=== PATIENT | female | born 1955 | race Caucasian/White ===

== ENCOUNTER 2021-01-13 14:48 | Emergency (ER) | payer OTHER, MEDICARE ==
[~2021-01-13] VITALS: Ht 160 cm; Wt 77.1 kg
[2021-01-13 14:52] VITALS: BP_SYST 140
--- NOTE | 2021-01-13 14:52 | NUR ---
Patient to ER bed 5 to gown for evaluation. Side rails up. Report given to ASHOK FARIAS.
--- NOTE | 2021-01-13 15:07 | NUR ---
Pt. came in with c/o pain to left foot 07/12, this am at 0900 pt. rolled foot, bruising noted and mild swelling
[2021-01-13] MEDS ORDERED: KETOROLAC TROMETHAMINE 15 MG VIAL IM ONE (15:15)
--- NOTE | 2021-01-13 15:16 | NUR ---
ER at bedside examining patient.
--- NOTE | 2021-01-13 16:25 | NUR ---
walking cast given, assisted with placing on
[2021-01-13] MEDS ORDERED: ACET325T53 PO (16:43)
[2021-01-13 16:59] VITALS: BP_SYST 159
--- NOTE | 2021-01-13 17:00 | NUR ---
Patient given written and verbal discharge instructions and verbalizes understanding. ER Dr. Archibald discussed with patient the results and treatment provided. Patient in stable condition. ID arm band removed. Rx of Tylenol given. Patient educated on pain management and to follow up with PMD. Pain Scale 0. Opportunity for questions provided and answered. Medication side effect fact sheet provided.
== END 2021-01-13 17:00 | disposition home or self-care (01) ==
LOC: SED 14:48
DX: S92.355A Nondisplaced fracture of fifth metatarsal bone, left foot, initial encounter for closed fracture (principal); Z88.0 Allergy status to penicillin; X50.1XXA Overexertion from prolonged static or awkward postures, initial encounter; Y93.89 Activity, other specified; Y92.89 Other specified places as the place of occurrence of the external cause; Y99.8 Other external cause status
CPT/HCPCS: 73630; 96372; 99283; J1885